=== PATIENT | male | born 1955 | race Caucasian/White ===

== ENCOUNTER 2019-10-30 07:31 | Emergency (ER) | payer OTHER ==
[~2019-10-30] VITALS: Ht 170.2 cm; Wt 75.0 kg
[2019-10-30] MEDS ORDERED: HTN MED PO (07:56)
[2019-10-30] MEDS ORDERED: METF-960 PO (07:56)
[2019-10-30 08:23] VITALS: BP 154/87
== END 2019-10-30 08:45 | disposition home or self-care (01) ==
LOC: EMS 07:33
DX: R06.02 Shortness of breath (principal); R53.83 Other fatigue; M79.10 Myalgia, unspecified site; E78.00 Pure hypercholesterolemia, unspecified; I10 Essential (primary) hypertension; F17.200 Nicotine dependence, unspecified, uncomplicated; Z20.828 Contact with and (suspected) exposure to other viral communicable diseases
CPT/HCPCS: 99283; U0003

== ENCOUNTER 2019-10-31 15:27 | Emergency (ER) | payer OTHER ==
[~2019-10-31] VITALS: Ht 165.1 cm; Wt 75.0 kg
[~2019-10-31 15:27] MED LIST: HTN MED PO; METF-960 PO
[2019-10-31] MEDS ORDERED: ONDANSETRON HCL 4 MG/2 ML VIAL IVP ONE (16:00)
[2019-10-31] MEDS ORDERED: SODIUM CHLORIDE 0.9% 500 ML IV ONE (16:00)
[2019-10-31] MEDS ORDERED: KETOROLAC TROMETHAMINE 30 MG/ML VIAL IVP ONE (16:00)
[2019-10-31] MEDS ORDERED: ACETAMINOPHEN 500 MG TABLET PO ONE (16:00)
[2019-10-31 16:26] LABS: BASOPHILS % (AUTO) 0.6 % (0.0-2.0); EOSINOPHILS % (AUTO) 0.8 % (1.0-6.0); HEMATOCRIT 40.7 % (41-53); HEMOGLOBIN 13.9 g/dL (13.5-17.5); MEAN CORPUSCULAR HEMOGLOBIN 30.2 pg (26.0-34.0); MEAN CORPUSCULAR HGB CONC 34.2 G/dL (31.0-37.0); MEAN CORPUSCULAR VOLUME 88 fL (80-100); MONOCYTES # (AUTO) 0.5 K/uL (0.1-1.0); MONOCYTES % (AUTO) 4.9 % (2.0-9.0); NEUTROPHILS # (AUTO) 7.9 K/uL (1.8-7.7); NEUTROPHILS % (AUTO) 74.7 % (40.0-70.0); PLATELET COUNT (AUTO) 287 K/uL (150-450); RED BLOOD CELL COUNT(AUTO) 4.61 MIL/uL (4.50-5.90); RED CELL DISTRIBUTION WIDTH 13.5 % (11.5-14.5)
[2019-10-31 16:37] LABS: ANION GAP 11 mmol/L (8-16); CALCIUM, TOTAL 9.6 mg/dL (8.8-10.5); CARBON DIOXIDE 25 mmol/L (22-29); CHLORIDE 101 mmol/L (98-107); CREATININE 0.71 mg/dL (0.60-1.30); GLOMERULAR FILTR. RATE CALC > 60 mL/min (>60); GLUCOSE,RANDOM 75 mg/dL (70-110); POTASSIUM 3.9 mmol/L (3.5-5.1); SODIUM SERUM 137 mmol/L (136-145); UREA NITROGEN, BLOOD 12 mg/dL (7-18)
[2019-10-31 16:44] LABS: ALANINE AMINOTRANSFERASE 52 U/L (12-78); ALBUMIN 4.1 g/dL (3.4-5.0); ALKALINE PHOSPHATASE 71 U/L (46-116); ASPARTATE AMINOTRANSFERASE 36 U/L (15-37); BILIRUBIN,TOTAL 1.1 mg/dL (0.1-1.0); LIPASE 86 U/L (73-393); TOTAL PROTEIN, SERUM 7.8 g/dL (6.4-8.2)
[2019-10-31 19:35] LABS: APPEARANCE,URINE CLEAR (CLEAR); BILIRUBIN,URINE NEGATIVE (NEGATIVE); GLUCOSE, URINE (UA) NEGATIVE (NEGATIVE); KETONES,URINE 15 mg/dL (NEGATIVE); LEUKOCYTE ESTERASE ,URINE NEGATIVE (NEGATIVE); NITRATE,URINE NEGATIVE (NEGATIVE); OCCULT BLOOD,URINE NEGATIVE (NEGATIVE); PROTEIN,URINE NEGATIVE (NEGATIVE); UROBILINOGEN,URINE 0.2 mg/dL (<=1.0)
[2019-10-31 19:45] VITALS: BP 125/74
== END 2019-10-31 20:03 | disposition home or self-care (01) ==
LOC: EMS 15:29
DX: M54.5 Low back pain (principal); E11.9 Type 2 diabetes mellitus without complications; I10 Essential (primary) hypertension; E78.00 Pure hypercholesterolemia, unspecified; Z79.84 Long term (current) use of oral hypoglycemic drugs
CPT/HCPCS: 36415; 74176; 80053; 81003; 83690; 85025; 96374; 96375; 99285; J1885; J2405; J7040

== ENCOUNTER 2019-11-03 04:35 | Inpatient (IN) | payer OTHER ==
[~2019-11-03] VITALS: Ht 165.1 cm; Wt 75.4 kg
[2019-11-03 04:59] LABS: GLUCOSE,POINT OF CARE 97 MG/DL (70-110)
[2019-11-03 05:16] LABS: BASOPHILS % (AUTO) 0.7 % (0.0-2.0); EOSINOPHILS % (AUTO) 2.8 % (1.0-6.0); HEMATOCRIT 38.2 % (41-53); HEMOGLOBIN 13.1 g/dL (13.5-17.5); LYMPHOCYTES # (AUTO) 1.9 K/uL (1.0-4.8); LYMPHOCYTES % (AUTO) 26.5 % (22.0-44.0); MEAN CORPUSCULAR HEMOGLOBIN 29.8 pg (26.0-34.0); MEAN CORPUSCULAR HGB CONC 34.3 G/dL (31.0-37.0); MEAN CORPUSCULAR VOLUME 87 fL (80-100); MONOCYTES # (AUTO) 0.5 K/uL (0.1-1.0); MONOCYTES % (AUTO) 7.2 % (2.0-9.0); NEUTROPHILS # (AUTO) 4.5 K/uL (1.8-7.7); NEUTROPHILS % (AUTO) 62.8 % (40.0-70.0); PLATELET COUNT (AUTO) 274 K/uL (150-450); RED BLOOD CELL COUNT(AUTO) 4.39 MIL/uL (4.50-5.90); RED CELL DISTRIBUTION WIDTH 13.4 % (11.5-14.5)
[2019-11-03 05:30] LABS: ANION GAP 8 mmol/L (8-16); B-TYPE NATRIURETIC PEPTIDE 6 pg/mL (0-100); CALCIUM, TOTAL 9.3 mg/dL (8.8-10.5); CARBON DIOXIDE 29 mmol/L (22-29); CHLORIDE 101 mmol/L (98-107); CREATININE 0.82 mg/dL (0.60-1.30); GLOMERULAR FILTR. RATE CALC > 60 mL/min (>60); GLUCOSE,RANDOM 112 mg/dL (70-110); POTASSIUM 3.7 mmol/L (3.5-5.1); SODIUM SERUM 138 mmol/L (136-145); UREA NITROGEN, BLOOD 10 mg/dL (7-18)
[2019-11-03 05:31] LABS: PROTHROMBIN TIME 10.8 SEC (9.4-11.6)
[2019-11-03 05:38] LABS: AMMONIA 15 umol/L (11-32)
[2019-11-03 05:39] LABS: LACTIC ACID 0.9 mmol/L (0.4-2.0)
[2019-11-03 05:47] LABS: TROPONIN I < 0.02 ng/mL (0.00-0.05)
[2019-11-03 05:55] LABS: ALANINE AMINOTRANSFERASE 45 U/L (12-78); ALBUMIN 3.9 g/dL (3.4-5.0); ALKALINE PHOSPHATASE 76 U/L (46-116); ASPARTATE AMINOTRANSFERASE 22 U/L (15-37); BILIRUBIN,TOTAL 1.2 mg/dL (0.1-1.0); CREATINE KINASE, TOTAL ONLY 100 U/L (39-308); THYROID STIMULATING HORMONE 3.35 uIU/mL (0.36-3.74); TOTAL PROTEIN, SERUM 7.5 g/dL (6.4-8.2)
[2019-11-03 06:00] LABS: APPEARANCE,URINE CLEAR (CLEAR); BILIRUBIN,URINE NEGATIVE (NEGATIVE); GLUCOSE, URINE (UA) NEGATIVE (NEGATIVE); KETONES,URINE NEGATIVE (NEGATIVE); LEUKOCYTE ESTERASE ,URINE NEGATIVE (NEGATIVE); NITRATE,URINE NEGATIVE (NEGATIVE); OCCULT BLOOD,URINE NEGATIVE (NEGATIVE); PROTEIN,URINE NEGATIVE (NEGATIVE); UROBILINOGEN,URINE 0.2 mg/dL (<=1.0)
[2019-11-03] MEDS ORDERED: MAGNESIUM SULFATE 2 GM/WATER 50 ML IV ONE (06:00)
[2019-11-03 06:05] LABS: AMPHET/METH SCREEN,URINE NEGATIVE (NEGATIVE); BARBITURATE SCREEN, URINE NEGATIVE (NEGATIVE); BENZODIAZEPINES SCREEN,URINE NEGATIVE (NEGATIVE); CANNABINOID SCREEN,URINE NEGATIVE (NEGATIVE); COCAINE SCREEN,URINE NEGATIVE (NEGATIVE); METHADONE SCREEN, URINE NEGATIVE (NEGATIVE); OPIATE SCREEN,URINE NEGATIVE (NEGATIVE)
[2019-11-03 06:07] LABS: PHENCYCLIDINE SCREEN,URINE NEGATIVE (NEGATIVE)
[2019-11-03] MEDS ORDERED: ONDANSETRON HCL 4 MG/2 ML VIAL IVP PRN (06:15)
[2019-11-03] MEDS ORDERED: 0.9% SODIUM CHLORIDE 10 ML SYRINGE IVP PRN (06:15)
[2019-11-03] MEDS ORDERED: ACETAMINOPHEN 325 MG TABLET PO PRN ×2 (06:15→08:00)
[2019-11-03 06:18] LABS: RBC,URINE 0-2 /HPF (0-2); WBC,URINE 0-2 /HPF (0-5)
[2019-11-03 06:19] LABS: BACTERIA,URINE Rare /HPF (None Seen)
[2019-11-03] MEDS ORDERED: POTASSIUM CHLORIDE 20 MEQ ER TABLET PO PRN (07:45)
[2019-11-03] MEDS ORDERED: DEXTROSE 50%-WATER 25 GM/50 ML SYRINGE IVP PRN (07:45)
[2019-11-03] MEDS ORDERED: MAGNESIUM SULFATE 2 GM/WATER 50 ML IV PRN (07:45)
[2019-11-03] MEDS ORDERED: POTASSIUM CHL 10 MEQ/WATER 50 ML IV PRN (07:45)
[2019-11-03] MEDS ORDERED: MAGNESIUM OXIDE 400 MG TABLET PO PRN (07:45)
[2019-11-03] MEDS ORDERED: MAGNESIUM SULFATE 4 GM/WATER 100 ML IV PRN (07:45)
[2019-11-03] MEDS ORDERED: MAGNESIUM HYDROXIDE SUSPENSION 30 ML UDCUP PO PRN (08:00)
[2019-11-03] MEDS: HEPARIN SODIUM,PORCINE 5,000 UNITS/ML VIAL SQ SCH ×2 (08:04→17:09)
[2019-11-03] MEDS: FAMOTIDINE 20 MG TABLET PO SCH (08:05)
[2019-11-03] MEDS: ASPIRIN 81 MG CHEWABLE TABLET PO SCH (08:06)
[2019-11-03 15:38] VITALS: BP 131/66
[2019-11-03] MEDS: INSULIN LISPRO 100 UNITS/ML SQ PRN ×2 (17:13→21:59)
[2019-11-03 19:43] LABS: GLUCOSE,POINT OF CARE 120 MG/DL (70-110)
[2019-11-03 20:02] VITALS: BP 123/61
[2019-11-03 23:16] LABS: GLUCOMETER DEV NAME(LOC) 5N.1; GLUCOSE,POINT OF CARE 182 MG/DL (70-110)
[2019-11-04 00:01] LABS: GLUCOMETER DEV NAME(LOC) 5S.2A; GLUCOSE,POINT OF CARE 159 MG/DL (70-110)
[2019-11-04 00:12] VITALS: BP 116/60
[2019-11-04] MEDS: HEPARIN SODIUM,PORCINE 5,000 UNITS/ML VIAL SQ SCH ×2 (00:19→08:03)
[2019-11-04 04:00] VITALS: BP 125/79
[2019-11-04] MEDS: FAMOTIDINE 20 MG TABLET PO SCH (08:03)
[2019-11-04] MEDS: ASPIRIN 81 MG CHEWABLE TABLET PO SCH (08:04)
[2019-11-04 10:05] LABS: GLUCOMETER DEV NAME(LOC) 5S.1; GLUCOSE,POINT OF CARE 134 MG/DL (70-110)
[2019-11-04 10:16] VITALS: BP 126/63
[2019-11-04 11:18] VITALS: BP 128/68
[2019-11-04] MEDS: INSULIN LISPRO 100 UNITS/ML SQ PRN (11:51)
[2019-11-04 12:21] LABS: GLUCOMETER DEV NAME(LOC) 5S.1; GLUCOSE,POINT OF CARE 189 MG/DL (70-110)
== END 2019-11-04 14:20 | disposition home or self-care (01) | DRG 313 ==
LOC: EMS 04:35 → ICUN 07:47 → 5S 14:49
PROVIDERS: ADMIT Internal Medicine; ATTEND Internal Medicine
DX: R07.89 Other chest pain (principal); E11.9 Type 2 diabetes mellitus without complications; E78.00 Pure hypercholesterolemia, unspecified; I10 Essential (primary) hypertension; Z83.3 Family history of diabetes mellitus; Z82.49 Family history of ischemic heart disease and other diseases of the circulatory system; E78.5 Hyperlipidemia, unspecified; E03.9 Hypothyroidism, unspecified; E83.42 Hypomagnesemia
CPT/HCPCS: 83605; 83735; 84443; 87040; 93005; 93306; J1644; J2405; J3475; 36415-L1; 36415-TC; 71045-TC